=== PATIENT | male | born 1945 | race Caucasian/White ===

== ENCOUNTER 2020-09-05 12:05 | Emergency (ER) | payer MEDICARE, BC ==
[2020-09-05 13:56] LABS: #Lymphocytes 1.1 thou/uL (1.20-3.40); #Monocytes 0.6 thou/uL (0.11-0.59); #Neutrophils 4.4 thou/uL (1.40-6.50); %Basophils 0.2 % (0.0-1.0); %Eosinophils 0.2 % (0.0-10.0); %Lymphocytes 17.2 % (21.0-51.0); %Monocytes 9.4 % (0.0-10.0); Hemoglobin 11.5 g/dL (14.0-18.0); Mean Corpuscular HGB CONC 34.3 g/dL (32.0-36.0); Mean Corpuscular Hemoglobin 36.2 pg (27.0-31.0); Mean Platelet Volume 7.7 fL (7.4-10.4); Platelet Count 200 thou/uL (130-400); RBC Distribution Width 12.6 % (11.5-14.5); Red Blood Cell (RBC) Count 3.18 mill/uL (4.70-6.10); White Blood Cell (WBC) Count 6.1 thou/uL (4.8-10.8)
[2020-09-05 14:20] LABS: ALT (SGPT) 11 U/L (8-55); AST (SGOT) 18 U/L (5-34); Alkaline Phosphatase 71 U/L (40-110); Anion Gap 14 mmol/L (10-20); BUN (Urea Nitrogen) 20 mg/dL (8.4-25.7); Bilirubin, Total 0.6 mg/dL (0.2-1.2); Calc. Creatinine Clearance 0 mL/min (70-130); Calcium 9.1 mg/dL (7.8-10.44); Carbon Dioxide 22 mmol/L (23-31); Chloride 104 mmol/L (98-107); Estimated GFR-MDRD 65; Globulin 3.3 g/dL (2.4-3.5); Glucose 119 mg/dL (83-110); Potassium 5.4 mmol/L (3.5-5.1); Protein, Total 7.3 g/dL (5.8-8.1); Sodium 135 mmol/L (136-145)
[2020-09-05 14:27] LABS: MDiff Complete? YES; Macrocytosis SLIGHT = 6-15 cells (100X) (0-5/hpf); Platelet Morphology Comment Appears Adequate; Polychromasia SLIGHT = 2-3 cells (100X) (0-2/hpf)
[2020-09-05] MEDS ORDERED: Ibuprofen 200 MG TAB ONE (14:33)
[2020-09-05 15:13] LABS: Bilirubin Negative (Negative); Blood, Urine Negative (Negative); Clarity Clear (Clear); Glucose, Urine (Dipstick) Normal (Negative); Ketone, Urine Negative (Negative); Leukocyte Negative Leu/uL (Negative); Nitrite Negative (Negative); Protein, Urine (Dipstick) Negative (Neg-Trace); Specific Gravity, Urine 1.017 (1.002-1.036); Urobilinogen Normal mg/dL (Less than 2); pH, Urine 5.5 (5.0-9.0)
--- NOTE | 2020-09-05 16:49 | CT ---
CT Abdomen Pelvis W Con History: Groin pain Comparison: None. Findings: Mild scarring lung bases. Calcified pleural plaque throughout the left lung base abutting t he diaphragm with adjacent round atelectasis. Partially calcified plaque right lung base with adjacent round atelectasis. Heart size is enlarged. Cholelithiasis within the gallbladder fundus with adjacent adenomyomatosis. Large second portion duod enal diverticulum. Normal proximal small bowel rotation. No hydronephrosis. Partial herniation of the right bladder dome into a direct inguinal hernia which contains fat with so me low-grade stranding. No dilated loops of large or small bowel No acute osseous abnormality. Severe degenerative change right hip. Incidental note is made of a mid small bowel diverticulum containing gas and fluid without adjacent i nflammation. This is best seen on coronal images 54-59. Impression: 1. Fat containing right indirect inguinal hernia with some inflammatory response and fluid within the hernia sac. Mild deviation of the bladder dome toward the herniated fat with associated wall thickening. 2. Calcified pleural plaques both lung bases. 3. Cholelithiasis within the gallbladder fundus with adjacent adenomyomatosis. 4. Severe right hip degenerative change. Nonemergent outpatient evaluation for arthroplasty recommend ed.
== END 2020-09-05 17:14 | disposition home or self-care (01) ==
LOC: ERS 12:05
DX: K40.90 Unilateral inguinal hernia, without obstruction or gangrene, not specified as recurrent (principal); N40.0 Benign prostatic hyperplasia without lower urinary tract symptoms; E11.9 Type 2 diabetes mellitus without complications; E78.5 Hyperlipidemia, unspecified; I10 Essential (primary) hypertension
CPT/HCPCS: 74177; 80053; 81003; 85025

== ENCOUNTER 2020-10-14 06:19 | Outpatient (CLI) | payer MEDICARE, BC ==
[2020-10-14 12:21] LABS: Anion Gap 16 mmol/L (10-20); BUN (Urea Nitrogen) 18 mg/dL (8.4-25.7); Calc. Creatinine Clearance 0 mL/min (70-130); Calcium 8.9 mg/dL (7.8-10.44); Carbon Dioxide 25 mmol/L (23-31); Chloride 104 mmol/L (98-107); Glucose 126 mg/dL (83-110); Potassium 4.5 mmol/L (3.5-5.1); Sodium 140 mmol/L (136-145)
[2020-10-14 12:30] LABS: #Monocytes 0.5 10x3/uL (0.0-1.1); #Neutrophils 2.3 10x3/uL (1.5-8.4); %Basophils 0.5 % (0.0-2.0); %Lymphocytes 24.7 % (18.0-47.0); %Monocytes 14.3 % (0.0-10.0); %Neutrophils 60.2 % (40.0-75.0); Hemoglobin 10.6 g/dL (14.0-18.0); Mean Corpuscular HGB CONC 32.4 G/DL (32.0-36.0); Mean Corpuscular Volume 107.9 fl (80.0-100.0); Platelet Count 177 10x3/uL (130-400); RBC Distribution Width 13.2 % (11.5-14.5); Red Blood Cell (RBC) Count 3.03 10x6/uL (4.40-5.80); White Blood Cell (WBC) Count 3.8 10x3/uL (4.5-11.0)
[2020-10-14 12:54] LABS: Macrocytosis SLIGHT = 6-15 cells (100X) (0-5/hpf)
[2020-10-14 12:55] LABS: Platelet Morphology Comment Appears Adequate
[2020-10-14 18:03] LABS: SARS-CoV-2 MS2 Positive; SARS-CoV-2 N Gene Negative; SARS-CoV-2 S Gene Negative; SARS-CoV-2 by NAA Not Detected (NotDetected); SARS-CoV-2 orf1ab Negative
== END 2020-10-14 06:20 | disposition home or self-care (01) ==
LOC: LABBT 06:19
PROVIDERS: ATTEND Surgery
DX: Z01.818 Encounter for other preprocedural examination (principal); Z20.828 Contact with and (suspected) exposure to other viral communicable diseases; K40.90 Unilateral inguinal hernia, without obstruction or gangrene, not specified as recurrent
CPT/HCPCS: 80048; 85025; 93005; U0003; 87635; 93010

== ENCOUNTER 2020-10-17 05:54 | Day surgery (SDC) | payer MEDICARE, BC ==
[2020-10-16 12:47] VITALS: BMI 26.1
[2020-10-17] MEDS ORDERED: Bupivacaine PF 0.5% 30 ML VIAL ONE (06:52)
[2020-10-17] MEDS ORDERED: Bupivacaine 0.25% HCL 30 ML VIAL ONE (06:52)
[2020-10-17] MEDS ORDERED: Lidocaine 1% w/Epinephrine 1:100K 20 ML VIAL ONE (06:52)
[2020-10-17] MEDS ORDERED: Fentanyl 100 MCG/2 ML VIAL ONE (06:54)
[2020-10-17] MEDS ORDERED: Famotidine/PF 20 mg/2ml Vial ONE (07:22)
[2020-10-17 10:45] LABS: Syphilis Antibody Nonreactive (Nonreactive); Syphilis Antibody Index 0.03 S/CO (<1.00 Non-Reactive)
[2020-10-17 10:49] LABS: HBSAB Concentration Less than 8.00 mIU/mL; HBSAg Index 0.25 S/CO (0-0.99); HIV (1/2) Antibody/Antigen Non-Reactive (NonReactive); HIV 1/2 INDEX 0.13 S/CO (<1.00); Hep A IgM AB Non-Reactive (NonReactive); Hep A IgM S/CO 0.13 S/CO (0-0.79); Hep B Core Total Ab Non-Reactive (NonReactive); Hep B Core Total Index 0.07 S/CO (0-0.79); Hep B Surf AB Non-Reactive (NonReactive); Hep B Surf Ag Non-Reactive S/CO (NonReactive); Hep C IgG Ab Non-Reactive (NonReactive); Hep C Index 0.08 S/CO (0-0.79)
[2020-10-17] MEDS ORDERED: Ondansetron PF 4 MG/2 ML Vial ONE (11:13)
[2020-10-17] MEDS ORDERED: PROPOFOL 200 MG/20 ML VIAL ONE (11:13)
[2020-10-17] MEDS ORDERED: PHENYLEPHRINE-NS 100 MCG/ML 10 ML SYRINGE ONE (11:13)
[2020-10-17] MEDS ORDERED: ePHEDrine 50 MG/ML VIAL ONE (11:13)
[2020-10-17] MEDS ORDERED: Lidocaine 1% PF 5 ML VIAL ONE (11:13)
[2020-10-17] MEDS ORDERED: Dexamethasone 20 MG/5 ML VIAL ONE (11:13)
[2020-10-17] MEDS ORDERED: Glycopyrrolate 0.2 MG/ML 5 ML SYRINGE ONE (11:13)
--- NOTE | 2020-10-18 15:09 | OP ---
DATE OF PROCEDURE: 10/17/2020 PREOPERATIVE DIAGNOSIS: Right inguinal hernia. POSTOPERATIVE DIAGNOSIS: Right inguinal hernia. PROCEDURE PERFORMED: Right inguinal hernia repair with mesh, PHS extended. ANESTHESIA: General. ESTIMATED BLOOD LOSS: Minimal. COMPLICATIONS: None. SPECIMEN: None. FINDINGS: Right inguinal hernia. DESCRIPTION OF PROCEDURE: The patient was taken to the operating room and laid supine on the operating room table. After general anesthetic was obtained, bilateral groins and abdomen were shaved, prepped, and draped in a sterile fashion. Oblique incision was made above the pubic tubercle in the right lower quadrant. Cautery was dissected down through Real's to expose the external oblique. External oblique fibers opened along the course of the external ring. Contents of the inguinal canal were dissected from the backside of the external oblique. Cord structures were mobilized on the pubic tubercle using a [place] drain. Dissection superior medially on the cord showed there to be no indirect hernia sac. There was a direct sac that was dissected off the medial side of the cord structures. The preperitoneal space was entered bluntly through this defect and bluntly dissected using a wet unraveled Ray-Elías. PHS extended mesh was brought into the sterile field. The underlay was placed in the preperitoneal space. Its fibers laid out flat against the posterior abdominal wall. The mesh was straightened. The overlays were used to cover the inguinal floor. The overlay was cut laterally to incorporate the internal ring. The overlay was sewn distally to the pubic tubercle, medially to the transverse arch, laterally to the shelving edge of the ligament. The two ends of cut mesh were reapproximated at the internal ligament to reform the internal ring. The extra mesh was tucked back under the external oblique proximally. The wound was irrigated. Local anesthetic was applied. Real's was closed using 3-0 Vicryl. Tunnel catheter for postoperative pain threaded from above the incision, left on top of the mesh. Real's was closed using 3-0 Vicryl, skin was closed using running 4-0 Monocryl and Dermabond. The patient was sent to Recovery in stable condition. All instrument counts, needle counts, and lap counts were correct. Job ID: [id number]
== END 2020-10-17 11:38 | disposition home or self-care (01) ==
LOC: SDC 05:54
PROVIDERS: ATTEND Surgery
PROC: 0YU50JZ Supplement Right Inguinal Region with Synthetic Substitute, Open Approach (ICD-10-PCS; principal; 2020-10-17)
DX: K40.90 Unilateral inguinal hernia, without obstruction or gangrene, not specified as recurrent (principal); I11.0 Hypertensive heart disease with heart failure; I50.9 Heart failure, unspecified; E11.9 Type 2 diabetes mellitus without complications; E78.5 Hyperlipidemia, unspecified; E03.9 Hypothyroidism, unspecified; Z79.84 Long term (current) use of oral hypoglycemic drugs; Z79.899 Other long term (current) drug therapy; Z88.5 Allergy status to narcotic agent; Z88.8 Allergy status to other drugs, medicaments and biological substances
CPT/HCPCS: 49505; 86704; 86706; 86709; 86780; 86803; 87340; 87389; A4306; C1781; J0690; J1100; J2405; J2704; J3010; J3490; S0020; S0028

== ENCOUNTER 2023-01-14 18:00 | Inpatient (IN) | payer MEDICARE, BC ==
[2023-01-14 20:12] VITALS: BMI 21.4
[2023-01-14] MEDS ORDERED: Acetaminophen 325 MG TAB PO PRN (21:14)
[2023-01-14] MEDS ORDERED: Ondansetron ODT 4 MG TAB PO PRN (21:14)
[2023-01-14] MEDS ORDERED: Morphine 2 MG/ML VIAL SLOW IVP PRN (21:14)
[2023-01-14] MEDS ORDERED: Morphine 4 MG/ML VIAL SLOW IVP PRN (21:14)
[2023-01-14] MEDS ORDERED: Dextrose 5% in Water 1,000 ML IV PRN (21:14)
[2023-01-14] MEDS ORDERED: Dextrose 50% Abboject 50 ML SYRINGE SLOW IVP PRN (21:14)
[2023-01-14] MEDS ORDERED: HumaLOG 300 UNITS/3 ML VIAL SC PRN ×2 (21:14)
[2023-01-14] MEDS ORDERED: Sodium Chloride 0.9% 1,000 ML IV SCH (21:15)
[2023-01-14] MEDS ORDERED: metroNIDAZOLE 500 MG in Premix Bag 1 BAG IVPB SCH (22:00)
[2023-01-15] MEDS: metroNIDAZOLE 500 MG in Premix Bag 1 BAG IVPB SCH ×3 (01:12→18:38)
[2023-01-15 04:53] LABS: ALT (SGPT) 11 U/L (8-55); AST (SGOT) 24 U/L (5-34); Albumin 2.9 g/dL (3.4-4.8); Alkaline Phosphatase 54 U/L (40-110); Anion Gap 14 mmol/L (10-20); BUN (Urea Nitrogen) 56 mg/dL (8.4-25.7); Bilirubin, Total 0.3 mg/dL (0.2-1.2); Calc. Creatinine Clearance 25 mL/min (70-130); Carbon Dioxide 23 mmol/L (23-31); Chloride 107 mmol/L (98-107); Estimated GFR 25; Globulin 2.6 g/dL (2.4-3.5); Glucose 98 mg/dL (83-110); Potassium 4.2 mmol/L (3.5-5.1); Protein, Total 5.5 g/dL (5.8-8.1); Sodium 140 mmol/L (136-145)
[2023-01-15 05:06] LABS: CEA, Serum 0.79 ng/mL (< or = 5.0); Thyroid Stimulating Hormone 2.676 uIU/mL (0.35-4.94)
[2023-01-15] MEDS: Pantoprazole 40 MG VIAL IVP SCH ×2 (08:58→20:02)
[2023-01-15] MEDS: Dextrose 5 % And 0.9 % NaCl 1,000 ML IV SCH ×3 (09:09→20:05)
[2023-01-15 17:01] LABS: Bilirubin Negative (Negative); Blood, Urine 3+ (Negative); Clarity Clear (Clear); Glucose, Urine (Dipstick) Normal (Negative); Ketone, Urine Negative (Negative); Leukocyte 75 Leu/uL (Negative); Nitrite Negative (Negative); Protein, Urine (Dipstick) 50 mg/dL (Neg-Trace); RBC/HPF Greater than 50 HPF (0-3); Specific Gravity, Urine 1.017 (1.002-1.036); Squamous Epithelial None Seen HPF (0-3); Urobilinogen Normal mg/dL (Less than 2); pH, Urine 6.5 (5.0-9.0)
[2023-01-15 17:03] LABS: Bacteria/HPF Rare-Few HPF (None Seen)
[2023-01-15 17:08] LABS: Albumin 2.9 g/dL (3.4-4.8); Anion Gap 17 mmol/L (10-20); BUN (Urea Nitrogen) 56 mg/dL (8.4-25.7); BUN/Creatinine Ratio 21.88; CK (CPK) 398 U/L (30-200); Calc. Creatinine Clearance 25 mL/min (70-130); Calcium 8.2 mg/dL (7.8-10.44); Carbon Dioxide 22 mmol/L (23-31); Chloride 106 mmol/L (98-107); Estimated GFR 25; Glucose 93 mg/dL (83-110); Potassium 4.5 mmol/L (3.5-5.1); Sodium 140 mmol/L (136-145)
[2023-01-15 17:12] LABS: Creatinine, Urine 55.54 mg/dL (63-166)
[2023-01-16] MEDS: metroNIDAZOLE 500 MG in Premix Bag 1 BAG IVPB SCH ×3 (00:12→18:26)
[2023-01-16] MEDS: Dextrose 5 % And 0.9 % NaCl 1,000 ML IV SCH (04:36)
[2023-01-16 05:19] LABS: Hemoglobin 7.5 g/dL (14.0-18.0); Mean Corpuscular HGB CONC 33.7 g/dL (32.0-36.0); Mean Corpuscular Hemoglobin 36.1 pg (27.0-31.0); Mean Platelet Volume 7.2 fL (7.4-10.4); Platelet Count 234 10x3/uL (130-400); RBC Distribution Width 11.8 % (11.5-14.5); Red Blood Cell (RBC) Count 2.09 mill/uL (4.70-6.10); White Blood Cell (WBC) Count 4.1 10x3/uL (4.8-10.8)
[2023-01-16 05:22] LABS: Anion Gap 13 mmol/L (10-20); BUN (Urea Nitrogen) 38 mg/dL (8.4-25.7); CK (CPK) 244 U/L (30-200); Calc. Creatinine Clearance 38 mL/min (70-130); Calcium 8.2 mg/dL (7.8-10.44); Carbon Dioxide 22 mmol/L (23-31); Chloride 113 mmol/L (98-107); Estimated GFR 40; Glucose 129 mg/dL (83-110); Potassium 3.8 mmol/L (3.5-5.1); Sodium 144 mmol/L (136-145)
[2023-01-16 05:45] LABS: #Lymphocytes 0.3 thou/uL (1.20-3.40); #Monocytes 0.4 thou/uL (0.11-0.59); #Neutrophils 3.4 thou/uL (1.40-6.50); %Basophils 0.3 % (0.0-1.0); %Eosinophils 0.3 % (0.0-10.0); %Lymphocytes 8.1 % (21.0-51.0); %Monocytes 8.8 % (0.0-10.0); %Neutrophils 82.6 % (42.0-75.0); MDiff Complete? YES; Macrocytosis SLIGHT = 6-15 cells (100X) (0-5/hpf)
[2023-01-16] MEDS: Dextrose 5%-Lactated Ringers 1,000 ML IV SCH ×2 (07:24→18:28)
[2023-01-16] MEDS: Pantoprazole 40 MG VIAL IVP SCH ×2 (12:12→21:00)
[2023-01-16] MEDS: Ondansetron PF 4 MG/2 ML Vial IVP PRN (12:13)
[2023-01-16] MEDS ORDERED: MD-Gastroview 120 ML BOT ONE (15:22)
[2023-01-17] MEDS: Dextrose 5%-Lactated Ringers 1,000 ML IV SCH ×5 (01:22→21:31)
[2023-01-17] MEDS: metroNIDAZOLE 500 MG in Premix Bag 1 BAG IVPB SCH ×3 (01:22→18:31)
[2023-01-17] MEDS ORDERED: Metoclopramide HCl 10 MG/2 ML VIAL IVP SCH (05:45)
[2023-01-17 07:24] LABS: #Lymphocytes 0.5 thou/uL (1.20-3.40); #Monocytes 0.6 thou/uL (0.11-0.59); #Neutrophils 4.4 thou/uL (1.40-6.50); %Eosinophils 0.1 % (0.0-10.0); %Lymphocytes 9.5 % (21.0-51.0); %Monocytes 10.5 % (0.0-10.0); %Neutrophils 79.8 % (42.0-75.0); Hemoglobin 8.5 g/dL (14.0-18.0); Mean Corpuscular HGB CONC 34.3 g/dL (32.0-36.0); Mean Corpuscular Hemoglobin 36.6 pg (27.0-31.0); Mean Platelet Volume 7.1 fL (7.4-10.4); Platelet Count 223 10x3/uL (130-400); RBC Distribution Width 11.7 % (11.5-14.5); Red Blood Cell (RBC) Count 2.32 mill/uL (4.70-6.10); White Blood Cell (WBC) Count 5.5 10x3/uL (4.8-10.8)
[2023-01-17 07:45] LABS: Anion Gap 12 mmol/L (10-20); BUN (Urea Nitrogen) 30 mg/dL (8.4-25.7); Calc. Creatinine Clearance 46 mL/min (70-130); Calcium 8.4 mg/dL (7.8-10.44); Carbon Dioxide 23 mmol/L (23-31); Chloride 113 mmol/L (98-107); Estimated GFR 52; Glucose 146 mg/dL (83-110); Potassium 3.6 mmol/L (3.5-5.1); Sodium 144 mmol/L (136-145)
[2023-01-17 07:46] LABS: Iron 36 ug/dL (65-175); Iron Binding Capacity, Total 220 mcg/dL (261-462)
[2023-01-17 08:11] LABS: Albumin 3.3 g/dL (3.4-4.8)
[2023-01-17] MEDS: Pantoprazole 40 MG VIAL IVP SCH ×2 (08:56→21:31)
[2023-01-17] MEDS ORDERED: Iron, Sodium Ferric Gluconate 250 MG in Sodium Chloride 0.9% 250 ML 250 ML IVPB SCH (14:30)
[2023-01-18] MEDS: metroNIDAZOLE 500 MG in Premix Bag 1 BAG IVPB SCH ×3 (01:45→17:45)
[2023-01-18] MEDS: Dextrose 5%-Lactated Ringers 1,000 ML IV SCH ×3 (03:51→14:06)
[2023-01-18 07:15] LABS: #Lymphocytes 0.6 thou/uL (1.20-3.40); #Monocytes 0.8 thou/uL (0.11-0.59); #Neutrophils 4.1 thou/uL (1.40-6.50); %Basophils 0.1 % (0.0-1.0); %Eosinophils 0.2 % (0.0-10.0); %Lymphocytes 11.7 % (21.0-51.0); %Monocytes 13.8 % (0.0-10.0); %Neutrophils 74.2 % (42.0-75.0); Hemoglobin 7.9 g/dL (14.0-18.0); Mean Corpuscular HGB CONC 33.4 g/dL (32.0-36.0); Mean Corpuscular Hemoglobin 36.1 pg (27.0-31.0); Platelet Count 211 10x3/uL (130-400); RBC Distribution Width 11.8 % (11.5-14.5); Red Blood Cell (RBC) Count 2.18 mill/uL (4.70-6.10); White Blood Cell (WBC) Count 5.5 10x3/uL (4.8-10.8)
[2023-01-18 07:35] LABS: Anion Gap 11 mmol/L (10-20); BUN (Urea Nitrogen) 22 mg/dL (8.4-25.7); Calc. Creatinine Clearance 53 mL/min (70-130); Carbon Dioxide 23 mmol/L (23-31); Chloride 109 mmol/L (98-107); Estimated GFR 61; Glucose 136 mg/dL (83-110); Magnesium 1.7 mg/dL (1.6-2.6); Potassium 3.4 mmol/L (3.5-5.1); Sodium 140 mmol/L (136-145)
[2023-01-18 08:04] LABS: Phosphorus 2.3 mg/dL (2.3-4.7)
[2023-01-18] MEDS: Pantoprazole 40 MG VIAL IVP SCH ×2 (08:50→20:45)
[2023-01-18] MEDS ORDERED: Levothyroxine Sodium 100 MCG TAB PO SCH (09:00)
[2023-01-18] MEDS ORDERED: Potassium Chloride 20 MEQ in Premix Bag 1 BAG IVPB SCH (09:00)
[2023-01-18] MEDS: Levothyroxine Sodium 100 MCG TAB PO SCH (10:19)
[2023-01-18] MEDS ORDERED: Magnesium 2 GM/50 ML(in water) 2 GM in Premix Bag 1 BAG IVPB SCH (13:00)
[2023-01-18] MEDS ORDERED: Loratadine 10 MG TAB PO PRN (16:35)
[2023-01-18] MEDS ORDERED: Guaifenesin DM 100-10/5 ML UDCUP PO PRN (16:36)
[2023-01-18] MEDS ORDERED: Metoclopramide HCl 10 MG/2 ML VIAL IVP SCH (23:45)
[2023-01-19] MEDS: Dextrose 5%-Lactated Ringers 1,000 ML IV SCH ×3 (00:13→20:57)
[2023-01-19] MEDS: metroNIDAZOLE 500 MG in Premix Bag 1 BAG IVPB SCH ×3 (00:13→17:30)
[2023-01-19 07:16] LABS: #Lymphocytes 0.7 thou/uL (1.20-3.40); #Monocytes 0.6 thou/uL (0.11-0.59); #Neutrophils 4.8 thou/uL (1.40-6.50); %Basophils 0.4 % (0.0-1.0); %Eosinophils 0.2 % (0.0-10.0); %Monocytes 9.9 % (0.0-10.0); %Neutrophils 77.6 % (42.0-75.0); Hemoglobin 8.5 g/dL (14.0-18.0); Mean Corpuscular HGB CONC 32.8 g/dL (32.0-36.0); Mean Corpuscular Hemoglobin 35.2 pg (27.0-31.0); Platelet Count 221 10x3/uL (130-400); RBC Distribution Width 11.7 % (11.5-14.5); White Blood Cell (WBC) Count 6.2 10x3/uL (4.8-10.8)
[2023-01-19 07:36] LABS: Anion Gap 11 mmol/L (10-20); BUN (Urea Nitrogen) 16 mg/dL (8.4-25.7); Calc. Creatinine Clearance 68 mL/min (70-130); Calcium 8.3 mg/dL (7.8-10.44); Carbon Dioxide 25 mmol/L (23-31); Chloride 107 mmol/L (98-107); Estimated GFR 81; Glucose 107 mg/dL (83-110); Potassium 3.8 mmol/L (3.5-5.1); Sodium 139 mmol/L (136-145)
[2023-01-19] MEDS ORDERED: Sodium Bicarb 50 MEQ/50 ML VIAL ONE (09:04)
[2023-01-19] MEDS: Pantoprazole 40 MG VIAL IVP SCH ×2 (09:13→20:51)
[2023-01-19] MEDS: Levothyroxine Sodium 100 MCG TAB PO SCH (09:18)
[2023-01-19] MEDS ORDERED: Baclofen 10 MG TAB PO SCH (11:00)
[2023-01-19] MEDS ORDERED: Milk Of Magnesia 30 ML UDCUP PO ONE (12:48)
[2023-01-19] MEDS: Baclofen 10 MG TAB PO SCH (20:51)
[2023-01-20] MEDS: metroNIDAZOLE 500 MG in Premix Bag 1 BAG IVPB SCH ×3 (00:24→18:32)
[2023-01-20] MEDS: Dextrose 5%-Lactated Ringers 1,000 ML IV SCH ×2 (05:22→18:32)
[2023-01-20 06:52] LABS: #Lymphocytes 0.7 thou/uL (1.20-3.40); #Monocytes 0.7 thou/uL (0.11-0.59); #Neutrophils 4.5 thou/uL (1.40-6.50); %Basophils 0.4 % (0.0-1.0); %Eosinophils 0.1 % (0.0-10.0); %Lymphocytes 11.6 % (21.0-51.0); %Monocytes 11.5 % (0.0-10.0); %Neutrophils 76.4 % (42.0-75.0); Hemoglobin 8.9 g/dL (14.0-18.0); Mean Corpuscular HGB CONC 33.7 g/dL (32.0-36.0); Mean Corpuscular Hemoglobin 35.5 pg (27.0-31.0); Mean Platelet Volume 7.1 fL (7.4-10.4); Platelet Count 210 10x3/uL (130-400); RBC Distribution Width 11.7 % (11.5-14.5); White Blood Cell (WBC) Count 5.9 10x3/uL (4.8-10.8)
[2023-01-20 07:16] LABS: Albumin 2.8 g/dL (3.4-4.8); Anion Gap 11 mmol/L (10-20); BUN (Urea Nitrogen) 14 mg/dL (8.4-25.7); BUN/Creatinine Ratio 15.22; Calc. Creatinine Clearance 70 mL/min (70-130); Calcium 8.3 mg/dL (7.8-10.44); Carbon Dioxide 25 mmol/L (23-31); Chloride 103 mmol/L (98-107); Estimated GFR 85; Glucose 105 mg/dL (83-110); Magnesium 1.8 mg/dL (1.6-2.6); Phosphorus 2.9 mg/dL (2.3-4.7); Potassium 3.6 mmol/L (3.5-5.1); Sodium 135 mmol/L (136-145)
[2023-01-20] MEDS: Levothyroxine Sodium 100 MCG TAB PO SCH (08:27)
[2023-01-20] MEDS: Ondansetron PF 4 MG/2 ML Vial IVP PRN (08:27)
[2023-01-20] MEDS: Baclofen 10 MG TAB PO SCH ×2 (08:28→21:39)
[2023-01-20] MEDS: Pantoprazole 40 MG VIAL IVP SCH ×2 (08:29→21:39)
[2023-01-20] MEDS ORDERED: Iopamidol-370 76% 500 ML MDV (1 ML CHARGE) ONE (09:04)
[2023-01-21] MEDS: Dextrose 5%-Lactated Ringers 1,000 ML IV SCH ×3 (01:21→22:01)
[2023-01-21] MEDS: metroNIDAZOLE 500 MG in Premix Bag 1 BAG IVPB SCH ×3 (01:22→18:26)
[2023-01-21] MEDS: Levothyroxine Sodium 100 MCG TAB PO SCH (08:27)
[2023-01-21] MEDS: Baclofen 10 MG TAB PO SCH ×2 (08:27→21:57)
[2023-01-21] MEDS: Pantoprazole 40 MG VIAL IVP SCH (08:28)
[2023-01-21 09:00] LABS: Hemoglobin 9.5 g/dL (14.0-18.0); Mean Corpuscular HGB CONC 33.7 g/dL (32.0-36.0); Mean Corpuscular Hemoglobin 35.6 pg (27.0-31.0); Mean Platelet Volume 6.5 fL (7.4-10.4); Platelet Count 221 10x3/uL (130-400); RBC Distribution Width 11.9 % (11.5-14.5); Red Blood Cell (RBC) Count 2.66 mill/uL (4.70-6.10); White Blood Cell (WBC) Count 6.8 10x3/uL (4.8-10.8)
[2023-01-21] MEDS ORDERED: cefOXitin 2 GM in Sodium Chloride 0.9% 100 ML IVPB SCH (09:15)
[2023-01-21] MEDS: Ondansetron PF 4 MG/2 ML Vial IVP PRN (09:27)
[2023-01-21] MEDS ORDERED: fentaNYL PF 100 MCG/2 ML SYRINGE ONE (10:26)
[2023-01-21] MEDS ORDERED: Bupivacaine/Epinephrine 0.25% 30 ML VIAL ONE (10:46)
[2023-01-21] MEDS ORDERED: PHENYLEPHRINE-NS 100 MCG/ML 10 ML SYRINGE ONE (11:12)
[2023-01-21] MEDS ORDERED: NEOSTIGMINE 3 MG/3 ML SYR 3 MG/3 ML SYRINGE ONE (11:12)
[2023-01-21] MEDS ORDERED: Rocuronium Bromide 10 MG/ML (10ML VIAL) ONE (11:12)
[2023-01-21] MEDS ORDERED: PROPOFOL 200 MG/20 ML VIAL ONE (11:12)
[2023-01-21] MEDS ORDERED: Lidocaine 1% PF 5 ML VIAL ONE (11:12)
[2023-01-21] MEDS ORDERED: Ondansetron PF 4 MG/2 ML Vial ONE (11:12)
[2023-01-21] MEDS ORDERED: Glycopyrrolate 0.2 MG/ML 5 ML SYRINGE ONE (11:12)
[2023-01-21] MEDS ORDERED: Dexamethasone 20 MG/5 ML VIAL ONE (11:12)
[2023-01-21] MEDS ORDERED: Promethazine HCl 25 MG/ML VIAL IM PRN (12:47)
[2023-01-21] MEDS ORDERED: Ondansetron PF 4 MG/2 ML Vial IVP PRN (12:47)
[2023-01-21] MEDS ORDERED: hydrALAZINE 20 MG/ML VIAL SLOW IVP PRN (12:47)
[2023-01-21] MEDS ORDERED: Ipratropium/Albuterol 3 ML NEB NEB PRN (12:47)
[2023-01-21] MEDS ORDERED: FENTANYL 50 MCG/ML 1 ML VIAL ONE (12:58)
[2023-01-21] MEDS: Sodium Chloride 0.9% 1,000 ML IV SCH ×2 (13:45→21:57)
[2023-01-21] MEDS ORDERED: Famotidine 20 MG TAB PO SCH (21:00)
[2023-01-21] MEDS: Famotidine/PF 20 mg/2ml Vial SLOW IVP SCH (22:01)
[2023-01-22] MEDS: Sodium Chloride 0.9% 1,000 ML IV SCH (04:35)
[2023-01-22] MEDS: Dextrose 5%-Lactated Ringers 1,000 ML IV SCH (06:53)
[2023-01-22] MEDS: Baclofen 10 MG TAB PO SCH ×2 (07:49→20:36)
[2023-01-22] MEDS: Levothyroxine Sodium 100 MCG TAB PO SCH (07:49)
[2023-01-22] MEDS: Famotidine/PF 20 mg/2ml Vial SLOW IVP SCH (10:14)
[2023-01-22 10:21] LABS: Hemoglobin 9.4 g/dL (14.0-18.0); Mean Corpuscular HGB CONC 33.8 g/dL (32.0-36.0); Mean Corpuscular Hemoglobin 35.9 pg (27.0-31.0); Mean Platelet Volume 6.4 fL (7.4-10.4); Platelet Count 298 10x3/uL (130-400); RBC Distribution Width 12.1 % (11.5-14.5); Red Blood Cell (RBC) Count 2.63 mill/uL (4.70-6.10); White Blood Cell (WBC) Count 7.3 10x3/uL (4.8-10.8)
[2023-01-22 10:22] LABS: #Lymphocytes 0.8 thou/uL (1.20-3.40); #Monocytes 0.6 thou/uL (0.11-0.59); %Basophils 0.5 % (0.0-1.0); %Eosinophils 0.2 % (0.0-10.0); %Lymphocytes 10.3 % (21.0-51.0); %Monocytes 8.6 % (0.0-10.0); %Neutrophils 80.4 % (42.0-75.0); Hemoglobin 9.4 g/dL (14.0-18.0); Mean Corpuscular HGB CONC 33.8 g/dL (32.0-36.0); Mean Platelet Volume 6.4 fL (7.4-10.4); Platelet Count 296 10x3/uL (130-400); Red Blood Cell (RBC) Count 2.61 mill/uL (4.70-6.10); White Blood Cell (WBC) Count 7.5 10x3/uL (4.8-10.8)
[2023-01-22 10:43] LABS: Anion Gap 12 mmol/L (10-20); BUN (Urea Nitrogen) 14 mg/dL (8.4-25.7); Calc. Creatinine Clearance 56 mL/min (70-130); Calcium 8.1 mg/dL (7.8-10.44); Carbon Dioxide 25 mmol/L (23-31); Chloride 102 mmol/L (98-107); Estimated GFR 65; Glucose 115 mg/dL (83-110); Potassium 3.9 mmol/L (3.5-5.1); Sodium 135 mmol/L (136-145)
[2023-01-22] MEDS ORDERED: Carvedilol 6.25 MG TAB PO SCH (10:45)
[2023-01-22] MEDS: Carvedilol 6.25 MG TAB PO SCH (17:59)
[2023-01-22] MEDS: Atorvastatin Calcium 20 MG TAB PO SCH (20:36)
[2023-01-23 06:07] LABS: #Lymphocytes 0.7 thou/uL (1.20-3.40); #Monocytes 0.7 thou/uL (0.11-0.59); %Basophils 0.5 % (0.0-1.0); %Eosinophils 0.1 % (0.0-10.0); %Lymphocytes 9.2 % (21.0-51.0); %Monocytes 9.3 % (0.0-10.0); %Neutrophils 80.9 % (42.0-75.0); Hemoglobin 9.6 g/dL (14.0-18.0); Mean Corpuscular HGB CONC 33.8 g/dL (32.0-36.0); Mean Corpuscular Hemoglobin 35.4 pg (27.0-31.0); Mean Platelet Volume 6.6 fL (7.4-10.4); Platelet Count 298 10x3/uL (130-400); RBC Distribution Width 12.1 % (11.5-14.5); Red Blood Cell (RBC) Count 2.71 mill/uL (4.70-6.10); White Blood Cell (WBC) Count 7.4 10x3/uL (4.8-10.8)
[2023-01-23 06:29] LABS: Anion Gap 13 mmol/L (10-20); BUN (Urea Nitrogen) 17 mg/dL (8.4-25.7); Calc. Creatinine Clearance 55 mL/min (70-130); Calcium 8.4 mg/dL (7.8-10.44); Carbon Dioxide 24 mmol/L (23-31); Chloride 100 mmol/L (98-107); Estimated GFR 63; Glucose 98 mg/dL (83-110); Potassium 3.8 mmol/L (3.5-5.1); Sodium 133 mmol/L (136-145)
[2023-01-23] MEDS: Carvedilol 6.25 MG TAB PO SCH ×2 (12:04→17:07)
[2023-01-23] MEDS: Terazosin HCl 5 MG CAP PO SCH (12:05)
[2023-01-23] MEDS: Allopurinol 100 MG TAB PO SCH (12:05)
[2023-01-23] MEDS: Baclofen 10 MG TAB PO SCH ×2 (12:05→21:50)
[2023-01-23] MEDS: Levothyroxine Sodium 100 MCG TAB PO SCH (12:05)
[2023-01-23] MEDS: Lactated Ringer's 1,000 ML IV SCH ×2 (14:55→21:48)
[2023-01-23] MEDS: Multivitamins, Adult 10 ML, TRACE ELEMENT CONCENTRATE 1 ML in D15W-AA 5% with Lytes 2,0... IV SCH (14:55)
[2023-01-23] MEDS: Atorvastatin Calcium 20 MG TAB PO SCH (21:50)
[2023-01-24] MEDS: Lactated Ringer's 1,000 ML IV SCH ×2 (09:33→21:14)
[2023-01-24] MEDS: Terazosin HCl 5 MG CAP PO SCH (09:37)
[2023-01-24] MEDS: Allopurinol 100 MG TAB PO SCH (09:38)
[2023-01-24] MEDS: Carvedilol 6.25 MG TAB PO SCH ×2 (09:38→19:26)
[2023-01-24] MEDS: Levothyroxine Sodium 100 MCG TAB PO SCH (09:38)
[2023-01-24] MEDS: Baclofen 10 MG TAB PO SCH ×2 (09:39→21:15)
[2023-01-24] MEDS: Multivitamins, Adult 10 ML, TRACE ELEMENT CONCENTRATE 1 ML in D15W-AA 5% with Lytes 2,0... IV SCH (14:36)
[2023-01-24] MEDS: Atorvastatin Calcium 20 MG TAB PO SCH (21:15)
[2023-01-25 06:04] LABS: #Lymphocytes 0.7 thou/uL (1.20-3.40); #Monocytes 0.4 thou/uL (0.11-0.59); #Neutrophils 5.6 thou/uL (1.40-6.50); %Basophils 0.1 % (0.0-1.0); %Eosinophils 0.2 % (0.0-10.0); %Lymphocytes 9.9 % (21.0-51.0); %Monocytes 6.5 % (0.0-10.0); %Neutrophils 83.4 % (42.0-75.0); Hemoglobin 8.2 g/dL (14.0-18.0); Mean Corpuscular Hemoglobin 35.8 pg (27.0-31.0); Mean Platelet Volume 6.7 fL (7.4-10.4); Platelet Count 283 10x3/uL (130-400); RBC Distribution Width 12.1 % (11.5-14.5); White Blood Cell (WBC) Count 6.7 10x3/uL (4.8-10.8)
[2023-01-25 06:16] LABS: Anion Gap 10 mmol/L (10-20); BUN (Urea Nitrogen) 18 mg/dL (8.4-25.7); Calc. Creatinine Clearance 68 mL/min (70-130); Carbon Dioxide 26 mmol/L (23-31); Chloride 102 mmol/L (98-107); Estimated GFR 81; Glucose 123 mg/dL (83-110); Potassium 3.7 mmol/L (3.5-5.1); Sodium 134 mmol/L (136-145)
[2023-01-25] MEDS: Lactated Ringer's 1,000 ML IV SCH ×2 (06:25→18:49)
[2023-01-25] MEDS ORDERED: Multivitamins, Adult 10 ML, TRACE ELEMENT CONCENTRATE 1 ML in D15W-AA 5% with Lytes 2,0... IV SCH (08:00)
[2023-01-25] MEDS: Carvedilol 6.25 MG TAB PO SCH ×2 (08:46→18:48)
[2023-01-25] MEDS: Baclofen 10 MG TAB PO SCH ×2 (08:47→19:54)
[2023-01-25] MEDS: Terazosin HCl 5 MG CAP PO SCH (08:47)
[2023-01-25] MEDS: Allopurinol 100 MG TAB PO SCH (08:47)
[2023-01-25] MEDS: Levothyroxine Sodium 100 MCG TAB PO SCH (08:47)
[2023-01-25] MEDS: TRACE ELEMENT IV SCH (13:55)
[2023-01-25] MEDS: FAT EMULSION IV SCH (13:55)
[2023-01-25] MEDS: MULTIVITAMINS IV SCH (13:55)
[2023-01-25] MEDS: [UNRECOGNIZED DRUG - OTHER] IV SCH (13:55)
[2023-01-25] MEDS: Atorvastatin Calcium 20 MG TAB PO SCH (19:54)
[2023-01-26] MEDS: Lactated Ringer's 1,000 ML IV SCH ×2 (05:00→19:41)
[2023-01-26] MEDS: Allopurinol 100 MG TAB PO SCH (13:15)
[2023-01-26] MEDS: Terazosin HCl 5 MG CAP PO SCH (13:15)
[2023-01-26] MEDS: Carvedilol 6.25 MG TAB PO SCH ×2 (13:16→18:28)
[2023-01-26] MEDS: Levothyroxine Sodium 100 MCG TAB PO SCH (13:16)
[2023-01-26] MEDS: Baclofen 10 MG TAB PO SCH ×2 (13:17→20:22)
[2023-01-26] MEDS ORDERED: Multivitamins, Adult 10 ML, TRACE ELEMENT CONCENTRATE 1 ML in D15W-AA 5% with Lytes 2,0... IV SCH (14:00)
[2023-01-26] MEDS: Atorvastatin Calcium 20 MG TAB PO SCH (20:22)
[2023-01-27 08:08] LABS: #Lymphocytes 0.6 thou/uL (1.20-3.40); #Monocytes 0.5 thou/uL (0.11-0.59); #Neutrophils 2.8 thou/uL (1.40-6.50); %Basophils 0.4 % (0.0-1.0); %Eosinophils 0.1 % (0.0-10.0); %Lymphocytes 14.7 % (21.0-51.0); %Monocytes 11.7 % (0.0-10.0); %Neutrophils 73.2 % (42.0-75.0); Hemoglobin 7.8 g/dL (14.0-18.0); Mean Corpuscular HGB CONC 33.4 g/dL (32.0-36.0); Mean Corpuscular Hemoglobin 35.5 pg (27.0-31.0); Mean Platelet Volume 6.9 fL (7.4-10.4); Platelet Count 318 10x3/uL (130-400); Red Blood Cell (RBC) Count 2.18 mill/uL (4.70-6.10); White Blood Cell (WBC) Count 3.8 10x3/uL (4.8-10.8)
[2023-01-27 08:29] LABS: Anion Gap 9 mmol/L (10-20); BUN (Urea Nitrogen) 20 mg/dL (8.4-25.7); Calc. Creatinine Clearance 76 mL/min (70-130); Carbon Dioxide 26 mmol/L (23-31); Chloride 104 mmol/L (98-107); Estimated GFR 88; Glucose 134 mg/dL (83-110); Potassium 4.2 mmol/L (3.5-5.1); Sodium 135 mmol/L (136-145)
[2023-01-27] MEDS: Levothyroxine Sodium 100 MCG TAB PO SCH (09:10)
[2023-01-27] MEDS: Terazosin HCl 5 MG CAP PO SCH (09:10)
[2023-01-27] MEDS: Carvedilol 3.125 MG TAB PO SCH ×2 (09:10→19:03)
[2023-01-27] MEDS: Baclofen 10 MG TAB PO SCH ×2 (09:11→22:00)
[2023-01-27] MEDS: Allopurinol 100 MG TAB PO SCH (09:11)
[2023-01-27] MEDS: MULTIVITAMINS IV SCH (15:40)
[2023-01-27] MEDS: TRACE ELEMENT IV SCH (15:40)
[2023-01-27] MEDS: FAT EMULSION IV SCH (15:40)
[2023-01-27] MEDS: [UNRECOGNIZED DRUG - OTHER] IV SCH (15:40)
[2023-01-27] MEDS: Atorvastatin Calcium 20 MG TAB PO SCH (22:01)
[2023-01-28] MEDS: Baclofen 10 MG TAB PO SCH (08:31)
[2023-01-28] MEDS: Allopurinol 100 MG TAB PO SCH (08:31)
[2023-01-28] MEDS: Terazosin HCl 5 MG CAP PO SCH (08:31)
[2023-01-28] MEDS: Levothyroxine Sodium 100 MCG TAB PO SCH (08:31)
[2023-01-28] MEDS: Carvedilol 3.125 MG TAB PO SCH ×2 (08:31→17:28)
[2023-01-28] MEDS ORDERED: Baclofen 10 MG TAB PO PRN (13:28)
[2023-01-28 14:02] LABS: #Lymphocytes 0.7 thou/uL (1.20-3.40); #Monocytes 0.5 thou/uL (0.11-0.59); #Neutrophils 2.8 thou/uL (1.40-6.50); %Basophils 0.8 % (0.0-1.0); %Eosinophils 0.2 % (0.0-10.0); %Lymphocytes 16.9 % (21.0-51.0); %Monocytes 12.5 % (0.0-10.0); %Neutrophils 69.6 % (42.0-75.0); Hemoglobin 8.6 g/dL (14.0-18.0); Mean Corpuscular HGB CONC 33.6 g/dL (32.0-36.0); Mean Corpuscular Hemoglobin 35.5 pg (27.0-31.0); Mean Platelet Volume 6.8 fL (7.4-10.4); Platelet Count 331 10x3/uL (130-400); RBC Distribution Width 12.3 % (11.5-14.5); Red Blood Cell (RBC) Count 2.42 mill/uL (4.70-6.10)
[2023-01-28 14:49] LABS: Anion Gap 14 mmol/L (10-20); BUN (Urea Nitrogen) 21 mg/dL (8.4-25.7); Calc. Creatinine Clearance 65 mL/min (70-130); Calcium 8.1 mg/dL (7.8-10.44); Carbon Dioxide 25 mmol/L (23-31); Chloride 102 mmol/L (98-107); Estimated GFR 78; Glucose 108 mg/dL (83-110); Potassium 4.1 mmol/L (3.5-5.1); Sodium 137 mmol/L (136-145)
[2023-01-28] MEDS: Atorvastatin Calcium 20 MG TAB PO SCH (21:02)
[2023-01-29] MEDS: Carvedilol 3.125 MG TAB PO SCH (08:12)
[2023-01-29] MEDS: Levothyroxine Sodium 100 MCG TAB PO SCH (08:12)
[2023-01-29] MEDS: Allopurinol 100 MG TAB PO SCH (08:12)
[2023-01-29] MEDS: Terazosin HCl 5 MG CAP PO SCH (08:12)
[2023-01-29 12:20] VITALS: BP 96/57; TEMP 97.6
== END 2023-01-29 14:00 | DRG 329 ==
LOC: 2NO 18:00 → SURG A 01-16 17:41
PROVIDERS: ADMIT Internal Medicine; ATTEND Internal Medicine
PROC: 0DB80ZZ Excision of Small Intestine, Open Approach (ICD-10-PCS; principal; 2023-01-21)
PROC: 0DJD4ZZ Inspection of Lower Intestinal Tract, Percutaneous Endoscopic Approach (ICD-10-PCS; 2023-01-21)
PROC: 3E0336Z Introduction of Nutritional Substance into Peripheral Vein, Percutaneous Approach (ICD-10-PCS; 2023-01-23)
PROC: 02HV33Z Insertion of Infusion Device into Superior Vena Cava, Percutaneous Approach (ICD-10-PCS; 2023-01-23)
DX: K56.1 Intussusception (principal); E43 Unspecified severe protein-calorie malnutrition; D62 Acute posthemorrhagic anemia; E87.20 Acidosis, unspecified; I13.0 Hypertensive heart and chronic kidney disease with heart failure and stage 1 through stage 4 chronic kidney disease, or unspecified chronic kidney disease; K57.32 Diverticulitis of large intestine without perforation or abscess without bleeding; N17.9 Acute kidney failure, unspecified; K56.600 Partial intestinal obstruction, unspecified as to cause; Z20.822 Contact with and (suspected) exposure to COVID-19; G20 Parkinson's disease; I50.9 Heart failure, unspecified; E78.5 Hyperlipidemia, unspecified; E11.22 Type 2 diabetes mellitus with diabetic chronic kidney disease; D50.9 Iron deficiency anemia, unspecified; N18.30 Chronic kidney disease, stage 3 unspecified; M16.11 Unilateral primary osteoarthritis, right hip; D64.9 Anemia, unspecified; M19.90 Unspecified osteoarthritis, unspecified site; E87.6 Hypokalemia; E83.42 Hypomagnesemia; R13.12 Dysphagia, oropharyngeal phase; M10.9 Gout, unspecified; K56.7 Ileus, unspecified; D63.1 Anemia in chronic kidney disease; K80.20 Calculus of gallbladder without cholecystitis without obstruction; K52.9 Noninfective gastroenteritis and colitis, unspecified; R53.81 Other malaise; K57.10 Diverticulosis of small intestine without perforation or abscess without bleeding; N40.0 Benign prostatic hyperplasia without lower urinary tract symptoms; E03.9 Hypothyroidism, unspecified; Z79.890 Hormone replacement therapy; Z79.84 Long term (current) use of oral hypoglycemic drugs; Z79.899 Other long term (current) drug therapy; Z88.8 Allergy status to other drugs, medicaments and biological substances; Z85.828 Personal history of other malignant neoplasm of skin; Z68.21 Body mass index [BMI] 21.0-21.9, adult; K56.609 Unspecified intestinal obstruction, unspecified as to partial versus complete obstruction; R77.8 Other specified abnormalities of plasma proteins; I11.0 Hypertensive heart disease with heart failure
CPT/HCPCS: 36415; 36416; 71045; 74018; 74022; 74176; 74177; 74250; 80048; 80053; 80069; 81001; 81003; 82040; 82378; 82550; 82553; 82570; 82728; 83540; 83550; 83605; 83690; 83735; 84100; 84156; 84300; 84443; 84484; 84540; 85025; 85027; 86850; 86900; 86901; 87811; 88307; 93005; 93010; 96361; 96365; 96367; 96368; 96374; 96375; 97139; A4649; C9113; J0696; J1100; J1650; J1956; J2060; J2272; J2405; J2704; J2765; J2916; J3010; J3475; J3480; J7042; J7050; J7120; Q9963; Q9967; S0028; U0003; U0005